=== PATIENT | male | born 1940 | race Caucasian/White ===

== ENCOUNTER 2016-12-20 09:58 | Inpatient (IN) | payer OTHER ==
--- NOTE | ~2016-12-20 | HP ---
History And Physical [place] [id number] [facility] [place]. [address] NAME: BETO CHIANG : 42 STATUS : ADM [facility]#: [id number] AGE: 76 ADM/REG DATE : 12/20/16 MR#: [id number] REPORT SERV DATE: 12/20/16 DICTATED BY: CHEPE ROBERTS DATE: 12/20/16 REPORT STATUS : Draft TRANSCRIBED BY: BRANT DATE: 12/20/16 DATE OF ADMISSION: 12/20/2016 CHIEF COMPLAINT: Uncontrolled hypertension. HISTORY OF PRESENT ILLNESS: The patient is a very pleasant 76-year-old white male. He was supposed to be admitted today to [facility] for a left lower lobe lobectomy tomorrow for a nodule that was discovered on the CT scan, both for diagnostic and therapeutic purposes. He was noted by Dr. Esquivel's office to be quite hypertensive. He was subsequently referred to Dr. Toure who saw him in the office today and also felt his blood pressure was poorly controlled as high as 230 in the office. He was recommended for an ER visit and hospitalist admission for blood pressure control, then potentially nuclear stress testing, and then possibly the lobectomy. The patient denies any chest pain or shortness of breath. He actually feels fine. He seems a bit confused about his medications. I took the time to go through all of the office notes and I noted that he was on amlodipine earlier in November, then suddenly the amlodipine did not get refilled according to the pharmacy, so he is missing a 10 mg amlodipine dose every day. Subsequently he has had elevated blood pressures. He does continue to smoke a half pack per day. He has a remote history of an WA back in 1995, otherwise, he is really without complaints. PAST MEDICAL HISTORY: 1. Left lower lobe nodule newly diagnosed. 2. CAD with history of WA in 1995. 3. Tobacco abuse. 4. Carotid artery disease/PAD. 5. COPD. 6. Hyperlipidemia. 7. Hypertension. 8. Pancreatic insufficiency after a severe bout of pancreatitis in 2003. 9. Ascending aortic aneurysm at 4 cm. PAST SURGICAL HISTORY: He has had a hernia repair. ALLERGIES: NO KNOWN DRUG ALLERGIES. FAMILY HISTORY: Positive for CAD. He is and he has three children. He lives with a sister and has for the last 4 to 5 years. SOCIAL HISTORY: He smokes one-half pack per day. Drinks 2 beers on occasion, not every day but most days. He works repairing lawn mowers and such. He lives with his sister. HOME MEDICATIONS: Reviewed and attached. REVIEW OF SYSTEMS: Full 10-point review of systems obtained. Pertinent positives are mentioned in the HPI. History And Physical [address] [place]. [address] NAME: BETO CHIANG : 42 STATUS : ADM [facility]#: [id number] AGE: 76 ADM/REG DATE : 12/20/16 MR#: [id number] REPORT SERV DATE: 12/20/16 DICTATED BY: CHEPE ROBERTS DATE: 12/20/16 REPORT STATUS : Draft TRANSCRIBED BY: BRANT DATE: 12/20/16 PHYSICAL EXAMINATION: VITAL SIGNS: Blood pressure 227/91, temperature 97.5, pulse 54, pulse rate 19, and sats are 96%. GENERAL: Well-developed white male, in no obvious distress. HEENT: Normocephalic, atraumatic. Throat is clear. NECK: Supple. HEART: Regular rate and rhythm. LUNGS: Grossly clear. ABDOMEN: Soft, nontender, and nondistended. EXTREMITIES: Warm and dry. SKIN: Intact without rash or lesion. NEUROLOGIC: He is alert and oriented. He has symmetrical strength and tone in all four extremities. SKIN: Intact without obvious rash or lesion. PSYCHIATRIC: Mood and affect are appropriate. LAB AND X-RAY: EKG shows sinus rhythm. Chemistry panel is essentially normal. Troponin is negative. Mag is normal. CBC is normal. Coags are normal. Chest x-ray shows hyperinflation changes consistent with COPD. ASSESSMENT/PLAN: 1. Uncontrolled hypertension. This is likely due to medication error. He is supposed to be taking valsartan 320; ramipril 5 twice daily; atenolol 25 twice daily; and Norvasc 10 daily. He has been off the Norvasc. I have restarted it today and written for some p.r.n. hydralazine should this not control his blood pressure. If this is unsuccessful, we could certainly go up on his ramipril and potentially his atenolol. We would also add a low-dose diuretic. We will follow him closely. 2. Preop cardiac clearance and apparently Dr. Toure desired a stress test prior to surgery due to the fact that his EKG had some differences from the past. Once his blood pressure is controlled, we will likely proceed with nuclear stress testing. I made him n.p.o. after midnight depending on his blood pressures tomorrow, this could be done tomorrow and potentially go to surgery after. 3. Left lower lobe nodule per Dr. Esquivel. I have consulted him so that he can see the patient and make plans for surgery and it may be that he wants us to discharge the patient home once his blood pressure is controlled, then he could return for outpatient surgery or he may want to do it while he is here but we will defer to him. 4. History of PAD. 5. COPD with continued tobacco abuse. The patient was counseled about the importance of cessation, particularly with the new lung nodule. 6. Remote history of CAD. Again nuclear stress testing prior to surgery. 7. Hyperlipidemia. 8. Pancreatic insufficiency. Continue Creon. 9. Ascending aortic aneurysm. We will defer to Dr. Esquivel. 10.Deep venous thrombosis prophylaxis with subcutaneous Lovenox. 11.Disposition pending above. KLJ/MODL History And Physical [address] [address] NAME: BETO CHIANG : 42 STATUS : [facility]M [facility]#: [id number] AGE: 76 ADM/REG DATE : 12/20/16 MR#: [id number] REPORT SERV DATE: 12/20/16 DICTATED BY: CHEPE ROBERTS DATE: 12/20/16 REPORT STATUS : Draft TRANSCRIBED BY: BRANT DATE: 12/20/16 Chepe Roberts M.D. / [id number] CC: Sohail Loco MD James Headrick Jr., M.D. C. Samuel Ledford, M.D.
--- NOTE | ~2016-12-20 | CN ---
Consultation Report [facility] [address] [place]. [address] NAME: BETO CHIANG : 42 STATUS : ADM IN PAT#: [id number] AGE: 76 ADM/REG DATE : 12/20/16 MR#: [id number] REPORT SERV DATE: 12/21/16 DICTATED BY: CALLY MONTEMAYOR DATE: 12/21/16 REPORT STATUS : Draft TRANSCRIBED BY: MODL DATE: 12/21/16 DATE OF CONSULTATION: 12/20/2016 REASON FOR CONSULTATION: The patient admitted for uncontrolled hypertension with history of left lower lobe lung mass. BRIEF HISTORY: This is a 76-year-old white male who is well known to our practice, who was found to have a left lower lobe lung mass last year, that has been followed with serial CT scans and has been increasing in size. He underwent an attempted CT-guided needle biopsy, but given the location of the lung mass, the biopsy was aborted. He was scheduled for surgery this week for an excisional biopsy and possible lobectomy; however, he presented to his primary care physician last week severely hypertensive with systolic pressures remaining in the 200s. He saw Dr. Toure on Tuesday morning and was sent to the emergency department and was admitted for management of hypertension as well as abnormal EKG. We were notified of his admission and asked to make comments regarding continued management of his left lower lobe lung mass. PAST MEDICAL HISTORY: Significant for left lower lobe lung mass, cerebrovascular disease, COPD, coronary artery disease, hypertension, hyperlipidemia, and pancreatic insufficiency. SOCIAL HISTORY: He denies any alcohol or illicit drug use. He continues to abuse tobacco and has smoked approximately half a pack a day for the past 30 years. FAMILY HISTORY: Significant for two brothers with a history of cancer, one being colon cancer, as well as a sister with a history of unknown cancer. ALLERGIES: NONE. HOME MEDICATIONS: Include Anoro Ellipta, atenolol, atorvastatin, Creon, metoclopramide, potassium chloride, and verapamil. REVIEW OF SYSTEMS: Significant for shortness of breath. A complete 12-point review of systems was performed. All other systems are negative, except for the for the above-mentioned pertinent positives in the history of present illness. PHYSICAL EXAMINATION: VITAL SIGNS: Blood pressure 172/76, afebrile, heart rate 63, and oxygen saturation 96%. Weight 72 kg. Height 175 cm. CONSTITUTIONAL: This is a 76-year-old white male, who is alert and oriented, in no acute distress. HEENT: Normocephalic, atraumatic. Pupils are equal, round, and reactive to light. Ears, nose, throat: No lesions or exudate. NECK: Supple with no lymphadenopathy or JVP. Trachea midline. No goiter. CHEST: Symmetrical with no obvious chest wall deformities. Consultation Report [address] [place] [place]. [address] NAME: BETO CHIANG : 42 STATUS : ADM IN PAT#: [id number] AGE: 76 ADM/REG DATE : 12/20/16 MR#: [id number] REPORT SERV DATE: 12/21/16 DICTATED BY: CALLY MONTEMAYOR DATE: 12/21/16 REPORT STATUS : Draft TRANSCRIBED BY: BRANT DATE: 12/21/16 CARDIOVASCULAR: Regular rate and rhythm, S1, S2. No murmurs or gallops. ABDOMEN: Soft, nontender, and nondistended with positive bowel sounds in all four quadrants. RESPIRATORY: Diminished breath sounds bilaterally. GENITOURINARY: The patient voids without difficulty. Further examination was deferred. MUSCULOSKELETAL: No kyphosis or scoliosis. PSYCHIATRIC: Normal mood and affect. He is pleasant. NEUROLOGIC: No focal neurological deficit. SKIN: Warm and dry with normal turgor. No obvious breakdown or lesions noted. LABORATORY DATA: Laboratories dated 12/20/2016: Sodium 137, potassium 4.3, BUN 11, creatinine 0.96, glucose 86. White blood cell count 5.4, hemoglobin 13.7, hematocrit 40.2, and platelet count 131. CT of the chest dated 07/26/2016 showing left lower lobe mass measuring 24 x 22 mm in size, which has increased from 16 x 16 mm on 03/2016 scan and increased when compared to 10/2013 scan measuring 14 x 12 mm. Pulmonary function testing: FEV1 is 2.02 which is 72% of predicted. DLCO is 69% and DLCO/VA is 88%. PROBLEM LIST: 1. Left lower lobe lung mass. 2. Continued tobacco abuse. 3. Chronic obstructive pulmonary disease. 4. Hypertension. 5. Hyperlipidemia. 6. Cerebrovascular disease. 7. Pancreatic insufficiency. IMPRESSION AND PLAN: This is a 76-year-old white male with uncontrolled hypertension, who is admitted for management. He also had an abnormal EKG and is scheduled to undergo a nuclear stress testing as well as echocardiogram tomorrow and possibly cardiac catheterization. He was scheduled for a left thoracoscopy with excisional biopsy of left lower lobe mass and possible left lower lobectomy if this is to be a malignancy, but given his continued tobacco abuse, his hypertension, and several comorbid conditions, at this time I do not feel like surgery is appropriate, and we have discussed possible PET-CT upon discharge, and if this is to be a PET-avid lesion, then we go forward with possible stereotactic body radiation therapy without diagnosis. We will put him on the tumor board conference that is to occur at [facility] this Tuesday evening, and continue to follow along with his care. AM/BRANT Consultation Report [place] [id number] [facility]. [address] NAME: BETO CHIANG : 42 STATUS : ADM IN PAT#: [id number] AGE: 76 ADM/REG DATE : 12/20/16 MR#: [id number] REPORT SERV DATE: 12/21/16 DICTATED BY: CALLY MONTEMAYOR DATE: 12/21/16 REPORT STATUS : Draft TRANSCRIBED BY: BRANT DATE: 12/21/16 Cally Montemayor NP / [id number] CC: MD Luis Henderson MD
--- NOTE | ~2016-12-20 | DS ---
Discharge Summary [facility] [address] [facility] [place]. [address] NAME: BETO CHIANG : 42 STATUS : DIS IN PAT#: [id number] AGE: 76 ADM/REG DATE : 12/20/16 MR#: [id number] REPORT SERV DATE: 12/25/16 DICTATED BY: YANN ZENG DATE: 12/25/16 REPORT STATUS : Draft TRANSCRIBED BY: MODL DATE: 12/25/16 ADMISSION DATE: 12/20/2016 DISCHARGE DATE: 12/25/2016 REASON FOR ADMISSION: Hypertensive urgency. HISTORY OF PRESENT ILLNESS: Please refer to Dr. Ester Roberts' history and physical dated 12/20/2016 for complete details regarding the patient's admission. In brief, the patient was admitted to the Hospitalist Service for uncontrolled hypertension and cardiac clearance for possible lobectomy. HOSPITAL COURSE: The patient had an uncomplicated hospital course. He had been followed by CT Surgery as an outpatient along with Dr. Toure. He presented to the hospital with a markedly elevated blood pressure in the 200s. His home medications were started and then eventually, hydralazine and hydrochlorothiazide were added. His blood pressure is markedly well improved to the point where his systolic blood pressure is around the 120s to 130s. CT Surgery and [facility] continued to follow the patient. Cardiology was asked to do a preop clearance and he had an echocardiogram done, which showed left ventricular systolic function of 55%, moderate left ventricular diastolic dysfunction, [id number] aortic regurgitation. He had a followup stress test, a nuclear medicine stress test, which showed no ischemia and a post infusion EF 50%, overall low risk. CT Surgery felt with the patient's ongoing tobacco abuse and COPD, felt that radiation would be in his best interest as opposed to surgical intervention. He was presented at the Tumor Board and the consensus was for radiation therapy. Radiation Oncology was consulted and they have arranged an appointment for him to be radiated on this upcoming Tuesday at 3 p.m. 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 He developed some hemoptysis as a result. He continues to have hemoptysis, but it is markedly improved. He did have some acute blood loss anemia, but his hemoglobin has been stable. Serial chest x-rays have showed improving pleural effusion. He has reached maximal hospitalization. He is not requiring any oxygen. He did not have any chest pain. He will be discharged home today in a stable condition. Follow up with Radiation Oncology on Tuesday for his first treatment. DISCHARGE DIAGNOSES: Hypertensive urgency, hemorrhagic effusion postprocedure, acute blood loss anemia without the need of blood transfusion, hemoptysis, bronchial carcinoid tumor biopsy proven, and ongoing tobacco abuse. PROCEDURES: Include consultation with CT Surgery, [facility], biopsy by Dr. Rendon, chest x-rays, echocardiogram, and nuclear medicine stress test. DISCHARGE MEDICATIONS: Include amlodipine 10 mg once a day, atenolol 25 mg twice a day, Lipitor 20 mg daily, Creon daily, Reglan 10 mg daily, hydrochlorothiazide 12.5 mg daily, ramipril 5 mg every morning, Anoro Ellipta, valsartan 320 mg every day, albuterol p.r.n., potassium chloride 20 mEq every morning. The patient will be discharged home today in stable condition. Follow up with Radiation Oncology on Tuesday. Discharge Summary [address] [address] NAME: BETO CHIANG : 42 STATUS : DIS IN PAT#: [id number] AGE: 76 ADM/REG DATE : 12/20/16 MR#: [id number] REPORT SERV DATE: 12/25/16 DICTATED BY: YANN ZENG DATE: 12/25/16 REPORT STATUS : Draft TRANSCRIBED BY: BRANT DATE: 12/25/16 Spending over 30 minutes in discharge planning and coordination of care. DICTATED BY: MD NARCISO Henderson/BRANT Yann Zeng MD / [id number] CC: MD Luis Henderson MD
[~2016-12-20 09:58] MED LIST: ATEN25 PO; LIPITOR20 PO; NORV10 PO; PROAIR HFA INH; REG PO
[2016-12-20 10:14] LABS: BASOPHILS 0.4 %; BASOPHILS ABSOLUTE 0.02 10/3/uL (0.0-0.16); EOSINOPHILS ABSOLUTE 0.16 10/3/uL (0.0-0.53); ER CBC TAT 0 Hrs 02 Mins; HEMATOCRIT 40.2 % (40.0-51.0); HEMOGLOBIN 13.7 g/dL (13.6-17.8); IMMATURE GRANULOCYTES 0.6 %; IMMATURE GRANULOCYTES ABSOLUTE 0.03 10/3/uL (0.0-0.11); LYMPHOCYTES 34.3 %; LYMPHOCYTES ABSOLUTE 1.86 10/3/uL (0.67-4.30); MEAN CORPUS HGB CONC 34.1 g/dL (32.0-36.0); MEAN CORPUSCULAR HEMOGLOB 32.2 pg (26.0-34.0); MEAN CORPUSCULAR VOLUME 94.6 fL (80-100); MEAN PLATELET VOLUME 10.1 fL (9.2-13.0); MONOCYTES 11.8 %; MONOCYTES ABSOLUTE 0.64 10/3/uL (0.21-1.20); NEUTROPHILS 49.9 %; NEUTROPHILS ABSOLUTE 2.71 10/3/uL (2.02-8.40); PLATELET COUNT 131 10/3/uL (150-400); RED CELL COUNT 4.25 10/6/uL (4.7-6.1); WHITE BLOOD CELLS 5.4 10/3/uL (4.5-10.5)
[2016-12-20 10:17] LABS: MANUAL DIFF NO %
[2016-12-20 10:26] LABS: INTERNATIONAL NORMAL RATI 1.1 UNITS (-); PARTIAL THROMBO TIME 29.4 SEC (22.5-37.2); PROTIME (NOT ORD) 13.7 SEC (12.0-14.5)
[2016-12-20 10:28] LABS: BUN (BLOOD UREA NITROGEN) 11 MG/DL (6-23); CALCIUM, SERUM 9.6 MG/DL (8.5-10.4); CHEST PAIN PROFILE TAT 0 Hrs 16 Mins; CHLORIDE, SERUM 104 MMOL/L (96-112); CO2 (CARBON DIOXIDE) 26 MMOL/L (24-34); CREATININE 0.96 MG/DL (0.70-1.30); GFR AFRICAN AMERICAN 89 ML/MIN (>=60); GFR NON AFRICAN AMERICAN 77 ML/MIN (>=60); GLUCOSE, SERUM 86 MG/DL (60-99); POTASSIUM, SERUM 4.3 MMOL/L (3.5-5.3); SODIUM, SERUM 137 MMOL/L (135-148); TROPONIN I 0.02 NG/ML (<0.05)
[2016-12-20] MEDS ORDERED: DIOVAN320 MG PO (11:00)
[2016-12-20] MEDS ORDERED: ATEN25 PO (11:01)
[2016-12-20] MEDS ORDERED: ANOROELLIPTA INH (11:01)
[2016-12-20] MEDS ORDERED: PROAIR HFA INH (11:02)
[2016-12-20] MEDS ORDERED: ALTA5 PO (11:02)
[2016-12-20] MEDS ORDERED: CREON DR 36,001 EACH PO (11:03)
[2016-12-20] MEDS ORDERED: KLOR-CON M2020 MEQ PO (11:03)
[2016-12-20] MEDS ORDERED: LIPITOR20 PO (11:03)
[2016-12-20] MEDS ORDERED: REG PO (11:04)
[2016-12-21 07:24] LABS: BUN (BLOOD UREA NITROGEN) 15 MG/DL (6-23); CALCIUM, SERUM 9.1 MG/DL (8.5-10.4); CHLORIDE, SERUM 105 MMOL/L (96-112); CO2 (CARBON DIOXIDE) 25 MMOL/L (24-34); CREATININE 0.95 MG/DL (0.70-1.30); GFR AFRICAN AMERICAN 90 ML/MIN (>=60); GFR NON AFRICAN AMERICAN 78 ML/MIN (>=60); GLUCOSE, SERUM 112 MG/DL (60-99); POTASSIUM, SERUM 3.8 MMOL/L (3.5-5.3); SODIUM, SERUM 136 MMOL/L (135-148)
[2016-12-23 09:50] LABS: BASOPHILS 0.2 %; BASOPHILS ABSOLUTE 0.01 10/3/uL (0.0-0.16); EOSINOPHILS 2.1 %; EOSINOPHILS ABSOLUTE 0.12 10/3/uL (0.0-0.53); IMMATURE GRANULOCYTES 0.2 %; IMMATURE GRANULOCYTES ABSOLUTE 0.01 10/3/uL (0.0-0.11); LYMPHOCYTES 39.6 %; LYMPHOCYTES ABSOLUTE 2.31 10/3/uL (0.67-4.30); MEAN CORPUS HGB CONC 34.4 g/dL (32.0-36.0); MEAN CORPUSCULAR HEMOGLOB 32.5 pg (26.0-34.0); MEAN CORPUSCULAR VOLUME 94.6 fL (80-100); MEAN PLATELET VOLUME 10.5 fL (9.2-13.0); MONOCYTES 9.3 %; MONOCYTES ABSOLUTE 0.54 10/3/uL (0.21-1.20); NEUTROPHILS 48.6 %; NEUTROPHILS ABSOLUTE 2.84 10/3/uL (2.02-8.40); PLATELET COUNT 110 10/3/uL (150-400); RBC DISTRIBUTION WIDTH 14.1 % (12.0-16.0); WHITE BLOOD CELLS 5.8 10/3/uL (4.5-10.5)
[2016-12-23 09:51] LABS: HEMATOCRIT 31.7 % (40.0-51.0); HEMOGLOBIN 10.9 g/dL (13.6-17.8); MANUAL DIFF NO %; RED CELL COUNT 3.35 10/6/uL (4.7-6.1)
[2016-12-24 06:00] LABS: BASOPHILS 0.4 %; BASOPHILS ABSOLUTE 0.02 10/3/uL (0.0-0.16); EOSINOPHILS ABSOLUTE 0.17 10/3/uL (0.0-0.53); HEMATOCRIT 29.6 % (40.0-51.0); HEMOGLOBIN 10.2 g/dL (13.6-17.8); IMMATURE GRANULOCYTES 0.4 %; IMMATURE GRANULOCYTES ABSOLUTE 0.02 10/3/uL (0.0-0.11); LYMPHOCYTES 37.5 %; LYMPHOCYTES ABSOLUTE 2.11 10/3/uL (0.67-4.30); MEAN CORPUS HGB CONC 34.5 g/dL (32.0-36.0); MEAN CORPUSCULAR HEMOGLOB 32.7 pg (26.0-34.0); MEAN CORPUSCULAR VOLUME 94.9 fL (80-100); MEAN PLATELET VOLUME 9.8 fL (9.2-13.0); MONOCYTES 11.4 %; MONOCYTES ABSOLUTE 0.64 10/3/uL (0.21-1.20); NEUTROPHILS 47.3 %; NEUTROPHILS ABSOLUTE 2.67 10/3/uL (2.02-8.40); PLATELET COUNT 89 10/3/uL (150-400); RBC DISTRIBUTION WIDTH 13.8 % (12.0-16.0); RED CELL COUNT 3.12 10/6/uL (4.7-6.1); WHITE BLOOD CELLS 5.6 10/3/uL (4.5-10.5)
[2016-12-24 06:10] LABS: MANUAL DIFF NO %
[2016-12-25 05:06] LABS: BASOPHILS 0.6 %; BASOPHILS ABSOLUTE 0.03 10/3/uL (0.0-0.16); EOSINOPHILS 2.9 %; EOSINOPHILS ABSOLUTE 0.15 10/3/uL (0.0-0.53); HEMOGLOBIN 9.9 g/dL (13.6-17.8); IMMATURE GRANULOCYTES 0.4 %; IMMATURE GRANULOCYTES ABSOLUTE 0.02 10/3/uL (0.0-0.11); LYMPHOCYTES ABSOLUTE 2.03 10/3/uL (0.67-4.30); MANUAL DIFF NO %; MEAN CORPUS HGB CONC 34.1 g/dL (32.0-36.0); MEAN CORPUSCULAR HEMOGLOB 32.7 pg (26.0-34.0); MEAN CORPUSCULAR VOLUME 95.7 fL (80-100); MONOCYTES 13.1 %; MONOCYTES ABSOLUTE 0.68 10/3/uL (0.21-1.20); PLATELET COUNT 108 10/3/uL (150-400); RBC DISTRIBUTION WIDTH 13.8 % (12.0-16.0); RED CELL COUNT 3.03 10/6/uL (4.7-6.1); WHITE BLOOD CELLS 5.2 10/3/uL (4.5-10.5)
[2016-12-25] MEDS ORDERED: NORV10 PO (10:39)
[2016-12-25] MEDS ORDERED: HYDROCHLOROT12.5 MG PO (10:40)
[2016-12-25] MEDS ORDERED: ANOROELLIPTA INH (10:42)
[2016-12-25] MEDS ORDERED: ALTA5 PO (10:42)
[2016-12-25] MEDS ORDERED: APRES50 PO (10:44)
== END 2016-12-25 12:36 | disposition home or self-care (01) | DRG 305 ==
LOC: ER 09:58 → 6NO 13:26
PROVIDERS: Emergency Medicine; Internal Medicine
PROC: 0BBJ3ZX Excision of Left Lower Lung Lobe, Percutaneous Approach, Diagnostic (ICD-10-PCS; principal; 2016-12-22)
DX: I16.0 Hypertensive urgency (principal); R04.2 Hemoptysis; J44.9 Chronic obstructive pulmonary disease, unspecified; I25.110 Atherosclerotic heart disease of native coronary artery with unstable angina pectoris; I35.1 Nonrheumatic aortic (valve) insufficiency; D62 Acute posthemorrhagic anemia; C7A.090 Malignant carcinoid tumor of the bronchus and lung; J95.62 Intraoperative hemorrhage and hematoma of a respiratory system organ or structure complicating other procedure; I10 Essential (primary) hypertension; R91.1 Solitary pulmonary nodule; I73.9 Peripheral vascular disease, unspecified; F17.210 Nicotine dependence, cigarettes, uncomplicated; E78.5 Hyperlipidemia, unspecified; Y84.8 Other medical procedures as the cause of abnormal reaction of the patient, or of later complication, without mention of misadventure at the time of the procedure; Y78.3 Surgical instruments, materials and radiological devices (including sutures) associated with adverse incidents; I67.9 Cerebrovascular disease, unspecified; K86.89 Other specified diseases of pancreas; I25.2 Old myocardial infarction; I71.4 Abdominal aortic aneurysm, without rupture; T46.1X6A Underdosing of calcium-channel blockers, initial encounter; Z91.138 Patient's unintentional underdosing of medication regimen for other reason
CPT/HCPCS: 32405; 71010; 71020; 77012; 78452; 80048; 83735; 84443; 84484; 85025; 85610; 85730; 88305; 88333; 88341; 88342; 88360; 93005; 93017; 93306; 94640; 96374; 99284; A9270-GY; A9502; G0463; J0153; J0360; J2250; J3010